=== PATIENT | female | born 1990 | race Caucasian/White ===

== ENCOUNTER 2017-10-06 13:44 | Inpatient (IN) | payer OTHER ==
[~2017-10-06] VITALS: Ht 152.4 cm; Wt 70.9 kg
[~2017-10-06 13:44] MED LIST: PREN1TAB62 PO
[2017-10-06] MEDS ORDERED: ONDANSETRON 4 MG INJ IV STA (14:04)
[2017-10-06] MEDS ORDERED: HYDROmorphONE 1 MG/ML SYG IV STA ×2 (14:04→16:55)
[2017-10-06] MEDS ORDERED: SOD CHLORIDE 0.9% 1,000 ML IV STA (14:04)
[2017-10-06 14:31] LABS: BASOPHIL # 0.1 10^3/ul (0.0-0.1); BASOPHILS % 0.5 % (0.0-2.0); EOSINOPHILS # 0.1 10^3/ul (0.0-0.5); EOSINOPHILS % 1.4 % (0.0-7.0); HEMATOCRIT 37.7 % (37.0-47.0); HEMOGLOBIN 12.3 g/dl (12.0-16.0); LYMPHOCYTES # 2.2 10^3/ul (0.8-2.9); LYMPHOCYTES % 21.1 % (15.0-51.0); MEAN CORPUSCULAR HEMOGLOBIN 29.1 pg (29.0-33.0); MEAN CORPUSCULAR HGB CONC 32.6 g/dl (32.0-37.0); MEAN CORPUSCULAR VOLUME 89.3 fl (82.0-101.0); MEAN PLATELET VOLUME 9.8 fl (7.4-10.4); MONOCYTE # 0.5 10^3/ul (0.3-0.9); MONOCYTES % 5.2 % (0.0-11.0); NEUTROPHIL # 7.3 10^3/ul (1.6-7.5); NEUTROPHILS % 71.4 % (39.0-77.0); PLATELET COUNT 325 10^3/UL (140-415); RED BLOOD COUNT 4.22 10^6/ul (4.20-5.40); RED CELL DISTRIBUTION WIDTH 14.2 % (11.5-14.5); WHITE BLOOD COUNT 10.3 10^3/ul (4.8-10.8)
[2017-10-06 14:49] LABS: ALBUMIN 4.3 g/dl (3.3-4.9); ALBUMIN/GLOBULIN RATIO 1.16; BILIRUBIN,INDIRECT 0.2 mg/dl (0-1.1); BILIRUBIN,TOTAL 0.2 mg/dl (0.2-1.3); CALCIUM 9.5 mg/dl (8.4-10.2); CREATININE 0.64 mg/dl (0.44-1.00); POTASSIUM 3.9 mmol/L (3.5-5.1)
--- NOTE | 2017-10-06 15:23 | RADRPT ---
PROCEDURE: Renal US. CLINICAL INDICATION: Left nephrostomy tube. Possible hydronephrosis. TECHNIQUE: Multiple sonographic images of the kidneys were obtained. COMPARISON: No prior studies are available for comparison. FINDINGS: The kidneys are well visualized. The right kidney measures 10.0 cm. The left kidney measures 11.8 cm . Normal renal cortical echogenicity. No evidence of shadowing renal calculi. Trace left hydronephro sis with nephrostomy tube visualized. No right hydronephrosis. Normal appearance of the urinary mercedez dder. IMPRESSION: Left nephrostomy tube with trace left hydronephrosis. RPTAT:AAJJ Physician Manny Date Time Electronically viewed and signed by Physician Manny on 10/06/2017 15:23 /
[2017-10-06 15:46] LABS: ADD UMIC YES; UR ASCORBIC ACID NEGATIVE (NEGATIVE); UR BACTERIA FEW /HPF (NONE SEEN); UR BILIRUBIN (Dip) NEGATIVE (NEGATIVE); UR BLOOD (Dip) 1+ mg/dL (NEGATIVE); UR CLARITY CLEAR (CLEAR); UR COLOR STRAW (YELLOW); UR GLUCOSE (Dip) NEGATIVE (NEGATIVE); UR KETONES (Dip) NEGATIVE (NEGATIVE); UR LEUKOCYTE ESTERASE (Dip) 2+ Leu/ul (NEGATIVE); UR NITRITE (Dip) POSITIVE (NEGATIVE); UR RBC 3 /HPF (0-5); UR TOTAL PROTEIN (Dip) NEGATIVE (NEGATIVE); UR UROBILINOGEN (Dip) NEGATIVE (NEGATIVE)
[2017-10-06] MEDS ORDERED: VANCOMYCIN 1 GM (PMX) 250 ML IVPB SCH (16:30)
[2017-10-06] MEDS ORDERED: CEFTRIAXONE 1 GM/50 ML (PMX) 50 ML IVPB ONE (16:30)
[2017-10-06 16:57] VITALS: TEMP 98.2
--- NOTE | 2017-10-06 17:58 | ERD ---
ER Documentation Chief Complaint Chief Complaint Sent by Dr ortiz for eval left kidney drain tube with flank pain HPI 26-year-old female referred to the emergency department by her urologist for evaluation of an infected urostomy tube. Patient has a known history of kidney stones and has had a urostomy in place for some time now. Patient is seen Dr. Davidson who has recommended admission to the hospital for infected stone. She reports colicky flank pain that she has had now on and off for some weeks. Despite multiple courses of antibiotics, she continues to have discomfort and intermittent fevers. Patient reports no hematuria and continues to have normal drainage from the nephrostomy tube. She reports nausea but no vomiting. She currently reports her pain is 10 out of 10 and localized to the area over the nephrostomy tube. ROS All systems reviewed and are negative except as per history of present illness. Medications Home Meds Discontinued Reported Medications Vit-Iron Fumarate-FA ( Vitamin Tablet) 1 Each Tablet, 1 TAB PO DAILY, TAB 06/05/16 Allergies Allergies: Coded Allergies: promethazine (Verified Allergy, Severe, 10/06/17) STOPS BREATHING PMhx/Soc History of Surgery: Yes (, ETOPIC PREG, I&D, NEPHROSTOMY TUBE) Anesthesia Reaction: No Hx Neurological Disorder: No Hx Respiratory Disorders: No Hx Cardiac Disorders: No Hx Psychiatric Problems: No Hx Miscellaneous Medical Probl: Yes (1.7MM KIDNEY STONE) Hx Alcohol Use: No Hx Substance Use: No Hx Tobacco Use: No Smoking Status: Never smoker FmHx Noncontributory for chief complaint Physical Exam Vitals Vital Signs Date Time Temp Pulse Resp B/P Pulse Ox O2 Delivery O2 Flow Rate FiO2 10/06/17 16:57 98.2 67 20 108/59 100 Room Air 10/06/17 14:30 98.2 55 20 111/67 100 Room Air 10/06/17 13:49 98.2 64 20 123/66 99 Physical Exam GENERAL: The patient is well developed and appropriate for usual state of health in no apparent distress, patient appears uncomfortable HEENT: Pupils equal, round, and reactive to light. EOMI. There is no scleral icterus. NECK: C-spine is soft and supple, there is no meningismus. There is no cervical lymphadenopathy. LUNGS: Clear to auscultation bilaterally. There are no rales, wheezes or rhonchi. HEART: Regular rate and rhythm, no murmurs, clicks, rubs or gallops. ABDOMEN: Soft, non-tender, non-distended. There are bowel sounds in all four quadrants. No rebound or guarding. There is a nephrostomy tube in the left flank. Patient has crusting around the insertion site with no cellulitis. EXTREMITIES: There is no peripheral cyanosis or edema. No focal swelling or erythema. NEURO: The patient moves all four extremities with 5/5 strength. Cranial nerves II - XII are intact. Normal gait. Alert and oriented SKIN: There is no apparent rash or petechiae. HEME/LYMPHATIC: There is no evidence of excessive bruising or lymphedema. PSYCHIATRIC: The patient does not appear anxious or depressed. Result Diagram: 10/06/17 1418 10/06/17 1418 Results 24 hrs Laboratory Tests Test 10/06/17 14:18 10/06/17 14:26 10/06/17 15:10 White Blood Count 10.310^3/ul Red Blood Count 4.2210^6/ul Hemoglobin 12.3g/dl Hematocrit 37.7% Mean Corpuscular Volume 89.3fl Mean Corpuscular Hemoglobin 29.1pg Mean Corpuscular Hemoglobin Concent 32.6g/dl Red Cell Distribution Width 14.2% Platelet Count 52393^3/UL Mean Platelet Volume 9.8fl Neutrophils % 71.4% Lymphocytes % 21.1% Monocytes % 5.2% Eosinophils % 1.4% Basophils % 0.5% Nucleated Red Blood Cells % 0.0/100WBC Neutrophils # 7.310^3/ul Lymphocytes # 2.210^3/ul Monocytes # 0.510^3/ul Eosinophils # 0.110^3/ul Basophils # 0.110^3/ul Nucleated Red Blood Cells # 0.010^3/ul Sodium Level 141mmol/L Potassium Level 3.9mmol/L Chloride Level 107mmol/L Carbon Dioxide Level 24mmol/L Anion Gap 14 Blood Urea Nitrogen 13mg/dl Creatinine 0.64mg/dl Glucose Level 90mg/dl Calcium Level 9.5mg/dl Total Bilirubin 0.2mg/dl Direct Bilirubin 0.00mg/dl Indirect Bilirubin 0.2mg/dl Aspartate Amino Transf (AST/SGOT) 23IU/L Alanine Aminotransferase (ALT/SGPT) 32IU/L Alkaline Phosphatase 75IU/L Total Protein 8.0g/dl Albumin 4.3g/dl Globulin 3.70g/dl Albumin/Globulin Ratio 1.16 Lipase 82U/L Lactic Acid Level 1.4mmol/L Urine Color STRAW Urine Clarity CLEAR Urine pH 6.0 Urine Specific [place] 1.010 Urine Ketones NEGATIVEmg/dL Urine Nitrite POSITIVEmg/dL Urine Bilirubin NEGATIVEmg/dL Urine Urobilinogen NEGATIVEmg/dL Urine Leukocyte Esterase 2+Shonna/ul Urine Microscopic RBC 3/HPF Urine Microscopic WBC 31/HPF Urine Bacteria FEW/HPF Urine Hemoglobin 1+mg/dL Urine Glucose NEGATIVEmg/dL Urine Total Protein NEGATIVEmg/dl Current Medications Medications (Trade) Dose Ordered Sig/Danna Route PRN Reason Start Time Stop Time Status Last Admin Dose Admin Sodium Chloride (NS) 1,000 ml @ 1,000 mls/hr Q1H STAT IV 10/06/17 14:04 10/06/17 15:03 DC 10/06/17 14:28 Hydromorphone HCl (Dilaudid) 1 mg ONCE STAT IV 10/06/17 14:04 10/06/17 14:06 DC 10/06/17 14:28 Ondansetron HCl 4 mg 4 mg ONCE STAT IV 10/06/17 14:04 10/06/17 14:06 DC 10/06/17 14:28 Ceftriaxone Sodium 50 ml @ 100 mls/hr ONCE ONCE IVPB 10/06/17 16:30 10/06/17 16:59 DC 10/06/17 16:57 Vancomycin HCl (Vancocin) 250 ml @ 125 mls/hr ONCE IVPB 10/06/17 16:30 10/06/17 18:29 Hydromorphone HCl (Dilaudid) 1 mg ONCE STAT IV 10/06/17 16:55 10/06/17 16:56 DC 10/06/17 17:09 Procedures/MDM Patient was taken to a room, seen and evaluated. Comfort measures were initiated. Diagnostic tests were ordered and reviewed. 3 LEAD RHYTHM STRIP: Normal sinus rhythm without ectopy RADIOLOGY: reviewed with the radiologist CONSULTATION: hospitalist was notified for admission, Dr. Davidson was consulted REEVALUATION: Patient remained uncomfortable with need for ongoing pain medication. MEDICAL DECISION MAKIN-year-old female presents the emergency department with evidence of an infected nephrostomy tube. At this time, patient will require IV antibiotics, admission to the hospital for urologic consultation and consideration of removal of the tube. Patient has no evidence of ongoing hydronephrosis at this time. Does not appear to be septic. Departure Diagnosis: Primary Impression: Skin inflammation at urostomy site Additional Impression: UTI (urinary tract infection) Condition: PARDEEP Matthew Oct 06, 2017 17:58
[2017-10-06 19:29] VITALS: Ht 152.4 cm; Wt 70.9 kg
[2017-10-06] MEDS ORDERED: HYDROmorphONE 1 MG/ML SYG IV ONE (21:00)
[2017-10-06 21:07] VITALS: BP 109/70; RESP 18
[2017-10-06] MEDS ORDERED: ONDANSETRON 4 MG INJ IV PRN (22:00)
[2017-10-06] MEDS ORDERED: NACL 0.9% 3 ML SYG IV SCH (22:00)
[2017-10-06] MEDS ORDERED: ACETAMINOPHEN 325 MG TAB PO PRN (22:00)
[2017-10-06] MEDS ORDERED: BISACODYL (EC) 5 MG TAB PO PRN (22:00)
[2017-10-06] MEDS ORDERED: DOCUSATE SODIUM 100 MG CAP PO PRN (22:00)
--- NOTE | 2017-10-06 23:31 | HP ---
Date/Time of Note Date/Time of Note DATE: 10/06/17 TIME: 23:31 Assessment/Plan VTE Prophylaxis VTE Prophylaxis Intervention: SCD's Lines/Catheters Urinary Cath still in place: No Assessment/Plan Chief Complaint/Hosp Course This is a 26-year-old female being admitted to the [facility] floor for: #1 urinary tract infection: Patient has a normal white blood cell count and is afebrile currently. Her UA is positive for nitrites and leuk esterase. She was given vancomycin and ceftriaxone in the ED. At the current time we will continue ceftriaxone. Will await urine culture. Will provide fluid hydration with normal saline #2 Nephrolithiasis: Patient apparently has a history of 1.2 cm kidney stone of the left kidney. On renal ultrasound there does not appear to be any renal stone visible, there does appear to be some mild hydronephrosis. At the current time will provide pain control with Dilaudid. Dr. Davidson of urology has been consulted will defer additional imaging to urology. #3 DVT and GI prophylaxis: SCDs, no GI prophylaxis indicated Further treatment strategy will be implemented as per the clinical course Problems: HPI/ROS Admit Date/Time Admit Date/Time Oct 06, 2017 at 17:54 Hx of Present Illness Chief complaint: Infected nephrostomy tube This is a 26-year-old female with a history of approximately 1.2 cm kidney stone was reported by the patient who presents to the emergency department at the direction of her urologist as she has been having significant pain from her left nephrostomy tube. Patient states that she has been diagnosed with a kidney stone for some time now and this is her third nephrostomy tube at this point. She was given an antibiotic to be taken as an outpatient however she was not able to take it as her pain was so bad that she had to come to the hospital. She reports colicky flank pain that has been going on and off for weeks now. She has been on multiple courses of antibiotics. She does report experiencing fevers as well. She denies any blood in the nephrostomy tube. Denies any vomiting but does state she has nausea. She also reports that she has itching on the site of the nephrostomy tube with the tape is as well as a rash. Allergies: Promethazine Medications: See MATTI JAMES Const: As per HPI Eyes : No pain discharge or redness or change in visual acuity ENT: No pain, sore throat, congestion, congestion, dysphagia or discharge Respiratory: No shortness of breath, cough, sputum, wheezing, or pleuritic pain Cardiovascular: No chest pain, palpitation, PND, or edema GI : no change in appetite, abdominal pain, nausea, vomiting, diarrhea, constipation, or change in the color his stool Genitourinary: As per HPI Musculoskeletal: No joint pain, back pain, neck pain, restricted range of motion in neck or joints Skin: No rash, bruising or hives Neuro: No headache, dizziness, syncope, seizure, focal weakness Endocrine: No polyuria, polydipsia, temperature intolerance Psych: No hallucination, depression, anxiety or suicidal ideation PMH/Family/Social Past Medical History Nephrolithiasis with approximately 1.2 cm kidney stone of the left kidney Past Surgical History 3 ectopic surgery, nephrostomy tube 3, Family History Significant Family History: other (Lupus, rheumatoid arthritis) Social History Alcohol Use: none Smoking Status: Current every day smoker (4 cigarettes a day 11 years) Drug Use: none Exam/Review of Systems Vital Signs Vitals Vital Signs Date Time Temp Pulse Resp B/P Pulse Ox O2 Delivery O2 Flow Rate FiO2 10/06/17 21:07 97.8 54 18 109/70 98 10/06/17 16:57 Room Air Exam Exam General: Patient was lying in bed initially when I saw her she was sleeping comfortably. She was easily arousable. HEENT: Atraumatic, normocephalic. The pupils are equal, round and reactive. Extraocular motor are intact Neck: Supple with full range of motion. No rigidity or meningismus Chest: Nontender Lungs: Clear to auscultation bilaterally no crackles rales or wheezing Heart: Normal S1-S2, Regular rhythm and rate. No murmur, S3, or S4 Abdomen: Soft , nontender, nondistended , bowel sounds are present. No guarding no rebound tenderness , No masses or organomegaly. No costovertebral temporal angle mass Extremities: Normal to inspection, no edema no cyanosis Neurologic: Normal mental status, speech normal, cranial nerves II through XII are intact, motor and sensory are intact, no focal weakness Genitourinary: Left-sided flank pain to palpation, nephrostomy tube in place, the tape around the nephrostomy tube is not adequately placed and she does have an underlying rash around the area of the tape. Urine appears cloudy Additional Comments PROCEDURE: Renal US. CLINICAL INDICATION: Left nephrostomy tube. Possible hydronephrosis. TECHNIQUE: Multiple sonographic images of the kidneys were obtained. COMPARISON: No prior studies are available for comparison. FINDINGS: The kidneys are well visualized. The right kidney measures 10.0 cm. The left kidney measures 11.8 cm. Normal renal cortical echogenicity. No evidence of shadowing renal calculi. Trace left hydronephrosis with nephrostomy tube visualized. No right hydronephrosis. Normal appearance of the urinary bladder. IMPRESSION: Left nephrostomy tube with trace left hydronephrosis. RPTAT:AAJJ Physician Manny Date Time Electronically viewed and signed by Ailin Damico Physician on 10/06/2017 15 :23 MH/ CC: PARDEEP HAWK Labs Result Diagram: 10/06/17 1418 10/06/17 1418 Medications Medications Current Medications Sodium Chloride (NS) 1,000 ml @ 80 mls/hr [id number] IV ; Start 10/07/17 at 00:00 Ondansetron HCl (Zofran Inj) 4 mg Q6H PRN IV NAUSEA AND/OR VOMITING; Start at 22:00 Acetaminophen (Tylenol Tab) 650 mg Q6H PRN PO PAIN LEVEL 1-3 OR FEVER; Start 10/06/17 at 22:00 Hydromorphone HCl (Dilaudid) 0.5 mg Q4H PRN IV SEVERE PAIN LEVEL 7-10; Start 10/06/17 at 22:00 Docusate Sodium (Colace) 100 mg Q12H PRN PO CONSTIPATION; Start 10/06/17 at 22 :00 Bisacodyl 5 mg 5 mg DAILY PRN PO CONSTIPATION; Start 10/06/17 at 22:00 Ceftriaxone Sodium (Rocephin) 50 ml @ 100 mls/hr Q24H IVPB ; Start 11/19/17 at 16:30 SOSA SCHROEDER Oct 06, 2017 23:31
[2017-10-06] MEDS: SOD CHLORIDE 0.9% 1,000 ML IV SCH (23:57)
[2017-10-07] MEDS: HYDROmorphONE 0.5 MG/0.5 ML SYG IV PRN ×6 (01:15→22:31)
[2017-10-07 03:06] VITALS: BP 127/84; RESP 18
[2017-10-07 06:08] LABS: BASOPHILS % 0.4 % (0.0-2.0); EOSINOPHILS # 0.1 10^3/ul (0.0-0.5); EOSINOPHILS % 1.8 % (0.0-7.0); HEMATOCRIT 32.9 % (37.0-47.0); HEMOGLOBIN 10.9 g/dl (12.0-16.0); LYMPHOCYTES # 2.2 10^3/ul (0.8-2.9); LYMPHOCYTES % 31.2 % (15.0-51.0); MEAN CORPUSCULAR HEMOGLOBIN 29.2 pg (29.0-33.0); MEAN CORPUSCULAR HGB CONC 33.1 g/dl (32.0-37.0); MEAN CORPUSCULAR VOLUME 88.2 fl (82.0-101.0); MEAN PLATELET VOLUME 9.8 fl (7.4-10.4); MONOCYTE # 0.5 10^3/ul (0.3-0.9); MONOCYTES % 6.3 % (0.0-11.0); NEUTROPHIL # 4.3 10^3/ul (1.6-7.5); PLATELET COUNT 277 10^3/UL (140-415); RED BLOOD COUNT 3.73 10^6/ul (4.20-5.40); RED CELL DISTRIBUTION WIDTH 14.1 % (11.5-14.5); WHITE BLOOD COUNT 7.2 10^3/ul (4.8-10.8)
[2017-10-07 06:38] LABS: ALBUMIN 3.5 g/dl (3.3-4.9); ALBUMIN/GLOBULIN RATIO 1.16; BILIRUBIN,INDIRECT 0.3 mg/dl (0-1.1); BILIRUBIN,TOTAL 0.3 mg/dl (0.2-1.3); CALCIUM 8.5 mg/dl (8.4-10.2); CHOL/HDL RATIO 3.9 RATIO; CREATININE 0.7 mg/dl (0.44-1.00); MAGNESIUM 1.8 mg/dl (1.7-2.5); TOTAL PROTEIN 6.5 g/dl (6.1-8.1)
[2017-10-07 07:52] LABS: THYROID STIMULATING HORMONE 1.4 MIU/L (0.465-4.680)
[2017-10-07 08:00] VITALS: BP 105/55; RESP 18
[2017-10-07] MEDS: HYDROCORTISONE 1% 28 GM CR TOP SCH ×2 (09:38→20:29)
[2017-10-07 09:48] LABS: INR 1.1; PROTIME 14.2 Sec (12.2-14.2); PT RATIO 1.1
[2017-10-07 09:49] LABS: PARTIAL THROMBOPLASTIN TIME 32.1 Sec (25.0-35.0)
--- NOTE | 2017-10-07 11:00 | RADRPT ---
PROCEDURE: XR ABDOMEN. CLINICAL INDICATION: Kidney stone TECHNIQUE: 2 views of the abdomen were obtained. COMPARISON: None. FINDINGS: There is nonspecific bowel gas pattern. No evidence of obstruction. No evidence of air-fluid levels. Stool and air is noted throughout large bowel. No evidence of subdiaphragmatic free air. There is a left-sided percutaneous nephrostomy tube. There is a large 1.6 cm calcification, adjacent to the ne phrostomy tube The visualized osseous structures are unremarkable. IMPRESSION: 1. Left-sided percutaneous nephrostomy tube. There is a large 1.6 cm calcification adjacent to the n ephrostomy tube overlying the left kidney, probably a large renal stone. RPTAT: EE Physician Gio Date Time Electronically viewed and signed by Physician Gio on 10/07/2017 10:59 JL/
[2017-10-07] MEDS: SOD CHLORIDE 0.9% 1,000 ML IV SCH (12:16)
[2017-10-07] MEDS: HYDROCODONE/APAP (5/325) TAB PO PRN ×3 (12:16→23:47)
[2017-10-07 14:00] VITALS: BP 97/57; RESP 18
--- NOTE | 2017-10-07 15:15 | CONS ---
Date/Time of Note Date/Time of Note DATE: 10/07/17 TIME: 15:02 Assessment/Plan Assessment/Plan Chief Complaint/Hosp Course 26-year-old female has a 16 mm stone in the left renal pelvis. She has a left nephrostomy tube which was initially inserted in June and changed twice since. Patient also was septic and was admitted to [facility] on August. The patient is now covered was antibiotic urine culture was taken from the left nephrostomy tube. The result is pending. In the meantime we shall cover her with antibiotic and may be in 2 days we will do the extracorporeal shockwave lithotripsy put the JJ stent and remove the nephrostomy tube. I did discuss this plan with her and the fact that she may need multiple procedures because of the size of the stone and the importance of following up as we cannot keep the JJ stent in place so it will not get calcified Problems: Consultation Date/Type/Reason Admit Date/Time Oct 06, 2017 at 17:54 Date of Consultation: Oct 07, 2017 Type of Consultation: Urology Reason for Consultation Left kidney stone and infected left nephrostomy tube Referring Provider: ERICK WRIGHT MD Hx of Present Illness This is a 26-year-old female who has been having problems with left renal stone since June 2017. At that time she was in [place] and she had a nephrostomy tube placed then again in August she had the nephrostomy tube replaced and also in July she was recently admitted to [facility] because of sepsis was treated with antibiotic and sent home. I did see the patient in the office on September 28 and requested authorization for shockwave lithotripsy and insertion of a JJ stent and removal of the nephrostomy tube. However the patient presented to the emergency room at [facility] because of pain and the infection. She was therefore admitted and started on antibiotics after collecting urine for culture from the nephrostomy Constitutional: no complaints Eyes: no complaints ENT: no complaints Respiratory: no complaints Cardiovascular: no complaints, No chest pain Gastrointestinal: no complaints, No nausea, No vomiting Genitourinary: flank pain (Left flank) Musculoskeletal: no complaints Skin: no complaints Endocrine: no complaints Lymphatic: no complaints Psychological: no complaints Immunologic: no complaints Past Medical History Medical History: other (Left renal stone, left nephrostomy tube, sepsis from the infection in the kidney) Past Surgical History Past Surgical Hx: other (Left nephrostomy tube inserted and replaced twice, 3 C -sections.) Family History Significant Family History: no pertinent family hx Social History Alcohol Use: none Smoking Status: Current every day smoker (4 cigarettes a day 11 years) Drug Use: none Other Social History She is a 5 para 3 1 ectopic one and 3 C-sections Exam/Review of Systems Vital Signs Vitals Vital Signs Date Time Temp Pulse Resp B/P Pulse Ox O2 Delivery O2 Flow Rate FiO2 10/07/17 08:00 98.5 62 18 105/55 99 10/06/17 16:57 Room Air Intake and Output 10/06/17 10/06/17 10/07/17 14:59 22:59 06:59 Intake Total 50 ml 900 ml Balance 50 ml 900 ml Exam Constitutional: alert, oriented Psych: no complaints Head: normocephalic Eyes: nl conjunctiva ENMT: nl external ears & nose Neck: supple Respiratory: normal air movement Cardiovascular: regular rate and rhythm Gastrointestinal: soft, No tender Genitourinary - Female: CVA tenderness (Left side, and left nephrostomy tube) Musculoskeletal: nl extremities to inspection Extremities: No calf tenderness Neurological: nl mental status Results Result Diagram: 10/07/1752010/07/17520 Results 24 hrs Laboratory Tests Test 10/06/17 15:10 10/07/17 05:21 10/07/17 08:38 Urine Color STRAW Urine Clarity CLEAR Urine pH 6.0 Urine Specific [place] 1.010 Urine Ketones NEGATIVE Urine Nitrite POSITIVE A Urine Bilirubin NEGATIVE Urine Urobilinogen NEGATIVE Urine Leukocyte Esterase 2+ H Urine Microscopic RBC 3 Urine Microscopic WBC 31 H Urine Bacteria FEW A Urine Hemoglobin 1+ H Urine Glucose NEGATIVE Urine Total Protein NEGATIVE White Blood Count 7.2 # Red Blood Count 3.73 L Hemoglobin 10.9 L Hematocrit 32.9 L Mean Corpuscular Volume 88.2 Mean Corpuscular Hemoglobin 29.2 Mean Corpuscular Hemoglobin Concent 33.1 Red Cell Distribution Width 14.1 Platelet Count 277 Mean Platelet Volume 9.8 Neutrophils % 60.0 Lymphocytes % 31.2 Monocytes % 6.3 Eosinophils % 1.8 Basophils % 0.4 Nucleated Red Blood Cells % 0.0 Neutrophils # 4.3 Lymphocytes # 2.2 Monocytes # 0.5 Eosinophils # 0.1 Basophils # 0.0 Nucleated Red Blood Cells # 0.0 Sodium Level 142 Potassium Level 4.0 Chloride Level 107 Carbon Dioxide Level 24 Anion Gap 15 Blood Urea Nitrogen 9 Creatinine 0.70 Glucose Level 85 Hemoglobin A1c 5.1 Calcium Level 8.5 Magnesium Level 1.8 Total Bilirubin 0.3 Direct Bilirubin 0.00 Indirect Bilirubin 0.3 Aspartate Amino Transf (AST/SGOT) 17 Alanine Aminotransferase (ALT/SGPT) 28 Alkaline Phosphatase 69 Total Protein 6.5 # Albumin 3.5 Globulin 3.00 Albumin/Globulin Ratio 1.16 Triglycerides Level 86 Cholesterol Level 135 LDL Cholesterol, Calculated 84 HDL Cholesterol 34 Cholesterol/HDL Ratio 3.9 Thyroid Stimulating Hormone (TSH) 1.400 Prothrombin Time 14.2 Prothrombin Time Ratio 1.1 INR International Normalized Ratio 1.10 Activated Partial Thromboplast Time 32.1 Imaging Free Text/Dictation KUB: 1. Left-sided percutaneous nephrostomy tube. There is a large 1.6 cm x1.8cm calcification adjacent to the nephrostomy tube overlying the left kidney, probably a large renal stone. Medications Medications Current Medications Sodium Chloride (NS) 1,000 ml @ 80 mls/hr [id number] IV Last administered on 12:16; Admin Dose 80 MLS/HR; Start 10/07/17 at 00:00 Ondansetron HCl (Zofran Inj) 4 mg Q6H PRN IV NAUSEA AND/OR VOMITING Last administered on 10/07/17 01:18; Admin Dose 4 MG; Start 10/06/17 at 22:00 Acetaminophen (Tylenol Tab) 650 mg Q6H PRN PO PAIN LEVEL 1-3 OR FEVER; Start 10/06/17 at 22:00 Hydromorphone HCl (Dilaudid) 0.5 mg Q4H PRN IV SEVERE PAIN LEVEL 7-10 Last administered on 10/07/17 14:10; Admin Dose 0.5 MG; Start 10/06/17 at 22:00 Docusate Sodium (Colace) 100 mg Q12H PRN PO CONSTIPATION; Start 10/06/17 at 22 :00 Bisacodyl 5 mg 5 mg DAILY PRN PO CONSTIPATION; Start 10/06/17 at 22:00 Ceftriaxone Sodium (Rocephin) 50 ml @ 100 mls/hr Q24H IVPB ; Start 10/07/17 at 16:30 Hydrocortisone (Hydrocortisone 1% Cr) 1 applic BID TOP Last administered on 09:38; Admin Dose 1 APPLIC; Start 10/07/17 at 09:00 Acetaminophen/ Hydrocodone Bitart ([place] (5/325)) 1 tab Q4H PRN PO PAIN LEVEL 1 -5 Last administered on 10/07/17 12:16; Admin Dose 1 TAB; Start 10/07/17 at 12:00 RODRÍGUEZ ERNANDEZ MD Oct 07, 2017 15:15
--- NOTE | 2017-10-07 16:56 | PN ---
Date/Time of Note Date/Time of Note DATE: 10/07/17 TIME: 16:55 Assessment/Plan VTE Prophylaxis VTE Prophylaxis Intervention: ambulation Lines/Catheters IV C[facility]ter Type (from [facility]): Peripheral IV Urinary Cath still in place: No Assessment/Plan Chief Complaint/Hosp Course 1. Urinary tract infection. Continue antimicrobials. Await final cultures. No evidence of any septic shock. 2. Left-sided kidney stone with associated urinary tract infection. The patient being followed by urology. Plan for lithotripsy. The patient has a left nephrostomy in place. 3. Obesity. BMI of 30.5 kg/m. Weight reduction advised. Hemoglobin A1c and fasting lipid panel satisfactory. 4. Nicotine use. Cessation advised. 5. Fluids, electrolytes, and nutrition. Regular diet. Continue IV hydration. 6. DVT prophylaxis. Ambulation. 7. Plan. Continue analgesics. Continue IV hydration. Continue empiric antibiotics. Await intervention by urology. Case discussed with Dr. Perry. Problems: Subjective 24 Hr Interval Summary Free Text/Dictation Left flank pain well controlled. Denies any nausea. Remains afebrile. Exam/Review of Systems Vital Signs Vitals Vital Signs Date Time Temp Pulse Resp B/P Pulse Ox O2 Delivery O2 Flow Rate FiO2 10/07/17 08:00 98.5 62 18 105/55 99 10/06/17 16:57 Room Air Intake and Output 10/06/17 10/06/17 10/07/17 14:59 22:59 06:59 Intake Total 50 ml 900 ml Balance 50 ml 900 ml Exam General: Adequately build 26 year-old female lying in bed in no apparent distress. HEENT: Normocephalic, atraumatic. Eyes: Anicteric sclerae, conjunctivae clear. ENT: Nasal septum midline, oral mucosa moist. Neck supple, no JVD noticed. Respiratory: Bilaterally clear breath sounds. No use of accessory muscles of respiration. No adventitious breath sounds. Cardiovascular: S1, S2 heard. No murmurs or gallops. Abdomen: Soft and nondistended. Left upper quadrant tenderness. Bowel sounds positive in all 4 quadrants. Genitourinary: Left CVA tenderness. Left-sided nephrostomy in place. Extremities: No cyanosis, no clubbing, no edema. Peripheral pulses palpable. Neurologic: Cranial nerves II through XII grossly intact. The patient is awake, alert, and oriented. Skin: Normal skin turgor. No skin rashes. Results Result Diagram: 10/07/17 0510/07/17 05 Results 24 hrs Laboratory Tests Test 10/07/17 05:21 10/07/17 08:38 White Blood Count 7.2 # Red Blood Count 3.73 L Hemoglobin 10.9 L Hematocrit 32.9 L Mean Corpuscular Volume 88.2 Mean Corpuscular Hemoglobin 29.2 Mean Corpuscular Hemoglobin Concent 33.1 Red Cell Distribution Width 14.1 Platelet Count 277 Mean Platelet Volume 9.8 Neutrophils % 60.0 Lymphocytes % 31.2 Monocytes % 6.3 Eosinophils % 1.8 Basophils % 0.4 Nucleated Red Blood Cells % 0.0 Neutrophils # 4.3 Lymphocytes # 2.2 Monocytes # 0.5 Eosinophils # 0.1 Basophils # 0.0 Nucleated Red Blood Cells # 0.0 Sodium Level 142 Potassium Level 4.0 Chloride Level 107 Carbon Dioxide Level 24 Anion Gap 15 Blood Urea Nitrogen 9 Creatinine 0.70 Glucose Level 85 Hemoglobin A1c 5.1 Calcium Level 8.5 Magnesium Level 1.8 Total Bilirubin 0.3 Direct Bilirubin 0.00 Indirect Bilirubin 0.3 Aspartate Amino Transf (AST/SGOT) 17 Alanine Aminotransferase (ALT/SGPT) 28 Alkaline Phosphatase 69 Total Protein 6.5 # Albumin 3.5 Globulin 3.00 Albumin/Globulin Ratio 1.16 Triglycerides Level 86 Cholesterol Level 135 LDL Cholesterol, Calculated 84 HDL Cholesterol 34 Cholesterol/HDL Ratio 3.9 Thyroid Stimulating Hormone (TSH) 1.400 Prothrombin Time 14.2 Prothrombin Time Ratio 1.1 INR International Normalized Ratio 1.10 Activated Partial Thromboplast Time 32.1 Medications Medications Current Medications Sodium Chloride (NS) 1,000 ml @ 80 mls/hr [id number] IV Last administered on 12:16; Admin Dose 80 MLS/HR; Start 10/07/17 at 00:00 Ondansetron HCl (Zofran Inj) 4 mg Q6H PRN IV NAUSEA AND/OR VOMITING Last administered on 10/07/17 01:18; Admin Dose 4 MG; Start 10/06/17 at 22:00 Acetaminophen (Tylenol Tab) 650 mg Q6H PRN PO PAIN LEVEL 1-3 OR FEVER; Start 10/06/17 at 22:00 Hydromorphone HCl (Dilaudid) 0.5 mg Q4H PRN IV SEVERE PAIN LEVEL 7-10 Last administered on 10/07/17 14:10; Admin Dose 0.5 MG; Start 10/06/17 at 22:00 Docusate Sodium (Colace) 100 mg Q12H PRN PO CONSTIPATION; Start 10/06/17 at 22 :00 Bisacodyl 5 mg 5 mg DAILY PRN PO CONSTIPATION; Start 10/06/17 at 22:00 Ceftriaxone Sodium (Rocephin) 50 ml @ 100 mls/hr Q24H IVPB ; Start 10/07/17 at 16:30 Hydrocortisone (Hydrocortisone 1% Cr) 1 applic BID TOP Last administered on 09:38; Admin Dose 1 APPLIC; Start 10/07/17 at 09:00 Acetaminophen/ Hydrocodone Bitart ([place] (5/325)) 1 tab Q4H PRN PO PAIN LEVEL 1 -5 Last administered on 10/07/17 12:16; Admin Dose 1 TAB; Start 10/07/17 at 12:00 MIKAYLA MASON NP Oct 07, 2017 16:56
[2017-10-07] MEDS: CEFTRIAXONE 1 GM/50 ML (PMX) 50 ML IVPB SCH (17:14)
[2017-10-07 20:34] VITALS: BP 109/59; RESP 18
[2017-10-08 02:42] VITALS: BP 122/58; RESP 18
[2017-10-08] MEDS: HYDROmorphONE 0.5 MG/0.5 ML SYG IV PRN ×5 (02:53→20:15)
[2017-10-08] MEDS: SOD CHLORIDE 0.9% 1,000 ML IV SCH ×2 (05:27→16:06)
[2017-10-08 06:50] LABS: BASOPHILS % 0.5 % (0.0-2.0); EOSINOPHILS # 0.1 10^3/ul (0.0-0.5); EOSINOPHILS % 1.9 % (0.0-7.0); HEMATOCRIT 33.8 % (37.0-47.0); LYMPHOCYTES # 2.3 10^3/ul (0.8-2.9); LYMPHOCYTES % 39.7 % (15.0-51.0); MEAN CORPUSCULAR HGB CONC 32.5 g/dl (32.0-37.0); MEAN CORPUSCULAR VOLUME 89.2 fl (82.0-101.0); MONOCYTE # 0.4 10^3/ul (0.3-0.9); MONOCYTES % 6.8 % (0.0-11.0); NEUTROPHILS % 50.9 % (39.0-77.0); PLATELET COUNT 305 10^3/UL (140-415); RED BLOOD COUNT 3.79 10^6/ul (4.20-5.40); WHITE BLOOD COUNT 5.9 10^3/ul (4.8-10.8)
[2017-10-08 07:15] LABS: MAGNESIUM 1.8 mg/dl (1.7-2.5); PHOSPHORUS 4.6 mg/dl (2.5-4.9)
[2017-10-08 07:48] VITALS: BP 105/55; RESP 18
[2017-10-08] MEDS: HYDROCODONE/APAP (5/325) TAB PO PRN ×4 (07:52→21:25)
[2017-10-08 08:03] LABS: CALCIUM 9.2 mg/dl (8.4-10.2); CREATININE 0.66 mg/dl (0.44-1.00); POTASSIUM 4.1 mmol/L (3.5-5.1)
[2017-10-08] MEDS: HYDROCORTISONE 1% 28 GM CR TOP SCH ×2 (09:09→21:03)
--- NOTE | 2017-10-08 09:25 | PN ---
Date/Time of Note Date/Time of Note DATE: 10/08/17 TIME: 09:22 Assessment/Plan VTE Prophylaxis VTE Prophylaxis Intervention: ambulation Lines/Catheters [facility] Type (from [facility] Peripheral IV Urinary Cath still in place: No Assessment/Plan Chief Complaint/Hosp Course Assessment and plan 1. Urinary tract infection. Continue antibiotics. Afebrile at present. No leukocytosis noted. 2. Left-sided renal stone with associated UTI. Patient being followed by urology. Tentative plan for lithotripsy. Will follow up. 3. Obesity. Weight reduction was advised. 4. Nicotine use. Cessation was advised. Disposition and plan: Continue with IV hydration and analgesics. Continue on antibiotics as well. Tentative plan for lithotripsy. Will follow up. Discussed plan of care with Dr. King Problems: Subjective 24 Hr Interval Summary Free Text/Dictation Reports better pain control at this time. No specific complaints. Appears comfortable at present. Exam/Review of Systems Vital Signs Vitals Vital Signs Date Time Temp Pulse Resp B/P Pulse Ox O2 Delivery O2 Flow Rate FiO2 10/08/17 07:48 98.4 49 18 105/55 98 10/06/17 16:57 Room Air Intake and Output 10/07/17 10/07/17 10/08/17 15:00 23:00 07:00 Intake Total 1650 ml 1550 ml Balance 1650 ml 1550 ml Exam Constitutional: alert, oriented, other (Reports some pain minimally on backside ) Psych: nl mood/affect Head: normocephalic Eyes: nl conjunctiva Neck: non-tender, supple Cardiovascular: other Gastrointestinal: soft (Regular rate) Musculoskeletal: nl extremities to inspection, nl gait and stance Extremities: normal pulses Neurological: HOGSHEAD HAND II-XII intact, nl mental status, nl speech Skin: nl turgor Results Result Diagram: 10/08/17 0530 10/08/17 0530 Results 24 hrs Laboratory Tests Test 10/08/17 05:30 White Blood Count 5.9 Red Blood Count 3.79 L Hemoglobin 11.0 L Hematocrit 33.8 L Mean Corpuscular Volume 89.2 Mean Corpuscular Hemoglobin 29.0 Mean Corpuscular Hemoglobin Concent 32.5 Red Cell Distribution Width 14.0 Platelet Count 305 Mean Platelet Volume 10.0 Neutrophils % 50.9 Lymphocytes % 39.7 Monocytes % 6.8 Eosinophils % 1.9 Basophils % 0.5 Nucleated Red Blood Cells % 0.0 Neutrophils # 3.0 Lymphocytes # 2.3 Monocytes # 0.4 Eosinophils # 0.1 Basophils # 0.0 Nucleated Red Blood Cells # 0.0 Sodium Level 142 Potassium Level 4.1 Chloride Level 107 Carbon Dioxide Level 27 Anion Gap 12 Blood Urea Nitrogen 11 Creatinine 0.66 Glucose Level 88 Calcium Level 9.2 Phosphorus Level 4.6 Magnesium Level 1.8 Medications Medications Current Medications Sodium Chloride (NS) 1,000 ml @ 80 mls/hr [id number] IV Last administered on 05:27; Admin Dose 80 MLS/HR; Start 10/07/17 at 00:00 Ondansetron HCl (Zofran Inj) 4 mg Q6H PRN IV NAUSEA AND/OR VOMITING Last administered on 10/07/17 01:18; Admin Dose 4 MG; Start 10/06/17 at 22:00 Acetaminophen (Tylenol Tab) 650 mg Q6H PRN PO PAIN LEVEL 1-3 OR FEVER; Start 10/06/17 at 22:00 Hydromorphone HCl (Dilaudid) 0.5 mg Q4H PRN IV SEVERE PAIN LEVEL 7-10 Last administered on 10/08/17 06:58; Admin Dose 0.5 MG; Start 10/06/17 at 22:00 Docusate Sodium (Colace) 100 mg Q12H PRN PO CONSTIPATION; Start 10/06/17 at 22 :00 Bisacodyl 5 mg 5 mg DAILY PRN PO CONSTIPATION; Start 10/06/17 at 22:00 Ceftriaxone Sodium (Rocephin) 50 ml @ 100 mls/hr Q24H IVPB Last administered on 10/07/17 17:14; Admin Dose 100 MLS/HR; Start 10/07/17 at 16:30 Hydrocortisone (Hydrocortisone 1% Cr) 1 applic BID TOP Last administered on 09:09; Admin Dose 1 APPLIC; Start 10/07/17 at 09:00 Acetaminophen/ Hydrocodone Bitart ([place] (5/325)) 1 tab Q4H PRN PO PAIN LEVEL 1 -5 Last administered on 10/08/17 07:52; Admin Dose 1 TAB; Start 10/07/17 at 12:00 SLADE KOVACS Oct 08, 2017 09:25
--- NOTE | 2017-10-08 13:59 | RADRPT ---
PROCEDURE: XR Chest. CLINICAL INDICATION: Shortness of breath TECHNIQUE: AP and lateral view of the chest were obtained. COMPARISON: None FINDINGS: Cardiac/vascular structures: Normal cardiomediastinal silhouette. Pulmonary: Lungs are clear. No pleural effusion. No evidence of pneumothorax. Osseous structures: Normal Soft tissues: Normal IMPRESSION: No acute cardiopulmonary disease. RPTAT:AAJJ Physician Manny Date Time Electronically viewed and signed by Ailin Damico Physician on 10/08/2017 13:59 /
[2017-10-08 15:01] VITALS: BP 92/58; RESP 18
[2017-10-08] MEDS: CEFTRIAXONE 1 GM/50 ML (PMX) 50 ML IVPB SCH (16:05)
[2017-10-08 20:00] VITALS: BP 122/68; RESP 18
--- NOTE | 2017-10-08 20:11 | CONS ---
Date/Time of Note Date/Time of Note DATE: 10/08/17 TIME: 20:07 Consult Date/Type/Reason Admit Date/Time Oct 06, 2017 at 17:54 Initial Consult Date 10/07/17 Type of Consultation: Urology Reason for Consultation Left renal stone and urinary tract infection, patient has a left nephrostomy tube Ordering Provider: ERICK WRIGHT MD Subjective Patient states that she has had pain today more than she did yesterday Objective Vital Signs Date Time Temp Pulse Resp B/P Pulse Ox O2 Delivery O2 Flow Rate FiO2 10/08/17 15:01 98.5 50 18 92/58 98 10/06/17 16:57 Room Air Intake and Output 10/07/17 10/07/17 10/08/17 14:59 22:59 06:59 Intake Total 1650 ml 1550 ml Balance 1650 ml 1550 ml Exam The nephrostomy tube is draining well, the culture from the urine from the nephrostomy tube did grow Asmita Results/Medications Result Diagram: 10/08/17 0530 10/08/17 0530 Results 24 hrs Laboratory Tests Test 10/08/17 05:30 10/08/17 12:15 White Blood Count 5.9 Red Blood Count 3.79 L Hemoglobin 11.0 L Hematocrit 33.8 L Mean Corpuscular Volume 89.2 Mean Corpuscular Hemoglobin 29.0 Mean Corpuscular Hemoglobin Concent 32.5 Red Cell Distribution Width 14.0 Platelet Count 305 Mean Platelet Volume 10.0 Neutrophils % 50.9 Lymphocytes % 39.7 Monocytes % 6.8 Eosinophils % 1.9 Basophils % 0.5 Nucleated Red Blood Cells % 0.0 Neutrophils # 3.0 Lymphocytes # 2.3 Monocytes # 0.4 Eosinophils # 0.1 Basophils # 0.0 Nucleated Red Blood Cells # 0.0 Sodium Level 142 Potassium Level 4.1 Chloride Level 107 Carbon Dioxide Level 27 Anion Gap 12 Blood Urea Nitrogen 11 Creatinine 0.66 Glucose Level 88 Calcium Level 9.2 Phosphorus Level 4.6 Magnesium Level 1.8 Urine Test NEGATIVE Medications Current Medications Sodium Chloride (NS) 1,000 ml @ 80 mls/hr [id number] IV Last administered on t 16:06; Admin Dose 80 MLS/HR; Start 10/07/17 at 00:00 Ondansetron HCl (Zofran Inj) 4 mg Q6H PRN IV NAUSEA AND/OR VOMITING Last administered on 10/07/17 01:18; Admin Dose 4 MG; Start 10/06/17 at 22:00 Acetaminophen (Tylenol Tab) 650 mg Q6H PRN PO PAIN LEVEL 1-3 OR FEVER; Start 10/06/17 at 22:00 Hydromorphone HCl (Dilaudid) 0.5 mg Q4H PRN IV SEVERE PAIN LEVEL 7-10 Last administered on 10/08/17 15:42; Admin Dose 0.5 MG; Start 10/06/17 at 22:00 Docusate Sodium (Colace) 100 mg Q12H PRN PO CONSTIPATION; Start 10/06/17 at 22 :00 Bisacodyl 5 mg 5 mg DAILY PRN PO CONSTIPATION; Start 10/06/17 at 22:00 Ceftriaxone Sodium (Rocephin) 50 ml @ 100 mls/hr Q24H IVPB Last administered on 10/08/17 16:05; Admin Dose 100 MLS/HR; Start 10/07/17 at 16:30 Hydrocortisone (Hydrocortisone 1% Cr) 1 applic BID TOP Last administered on 09:09; Admin Dose 1 APPLIC; Start 10/07/17 at 09:00 Acetaminophen/ Hydrocodone Bitart ([place] (5/325)) 1 tab Q4H PRN PO PAIN LEVEL 1 -5 Last administered on 10/08/17 16:41; Admin Dose 1 TAB; Start 10/07/17 at 12:00 Fluconazole (Diflucan) 100 mg DAILY PO ; Start 10/08/17 at 20:00 Assessment/Plan Chief Complaint/Hosp Course 26-year-old female has a 16 mm stone in the left renal pelvis. She has a left nephrostomy tube which was initially inserted in June and changed twice since. Patient also was septic and was admitted to [facility] on August. The patient is now covered was antibiotic urine culture was taken from the left nephrostomy tube. The result showed Asmita. I started her on Diflucan. we will do the extracorporeal shockwave lithotripsy put the JJ stent and remove the nephrostomy tube tomorrow at 5:30 PM. I did discuss this plan with her and the fact that she may need multiple procedures because of the size of the stone and the importance of following up as we cannot keep the JJ stent in place so it will not get calcified. She did understand all of that and is agreeable to proceed and promised to follow up till the whole treatment is completed. Problems: RODRÍGUEZ ERNANDEZ MD Oct 08, 2017 20:11
[2017-10-08] MEDS: FLUCONAZOLE 100 MG TAB PO SCH (20:15)
[2017-10-09] VITALS (21 sets, daily range): BP systolic 104–127; BP diastolic 58–78; PULSE 60–101; RESP 16–18
[2017-10-09] MEDS: HYDROmorphONE 0.5 MG/0.5 ML SYG IV PRN ×4 (01:08→16:30)
[2017-10-09] MEDS: SOD CHLORIDE 0.9% 1,000 ML IV SCH ×3 (02:00→16:30)
[2017-10-09] MEDS ORDERED: HYDROmorphONE 0.5 MG/0.5 ML SYG IV STA (02:20)
[2017-10-09] MEDS: HYDROCODONE/APAP (5/325) TAB PO PRN ×2 (05:32→09:47)
[2017-10-09 06:48] LABS: BASOPHILS % 0.4 % (0.0-2.0); EOSINOPHILS # 0.1 10^3/ul (0.0-0.5); EOSINOPHILS % 1.8 % (0.0-7.0); HEMATOCRIT 33.6 % (37.0-47.0); HEMOGLOBIN 11.1 g/dl (12.0-16.0); LYMPHOCYTES # 2.5 10^3/ul (0.8-2.9); LYMPHOCYTES % 34.1 % (15.0-51.0); MEAN CORPUSCULAR HEMOGLOBIN 29.2 pg (29.0-33.0); MEAN CORPUSCULAR VOLUME 88.4 fl (82.0-101.0); MEAN PLATELET VOLUME 9.9 fl (7.4-10.4); MONOCYTE # 0.5 10^3/ul (0.3-0.9); MONOCYTES % 6.8 % (0.0-11.0); NEUTROPHIL # 4.1 10^3/ul (1.6-7.5); NEUTROPHILS % 56.6 % (39.0-77.0); PLATELET COUNT 308 10^3/UL (140-415); RED CELL DISTRIBUTION WIDTH 13.9 % (11.5-14.5); WHITE BLOOD COUNT 7.2 10^3/ul (4.8-10.8)
[2017-10-09 07:25] LABS: CREATININE 0.85 mg/dl (0.44-1.00); POTASSIUM 4.5 mmol/L (3.5-5.1)
[2017-10-09] MEDS: FLUCONAZOLE 100 MG TAB PO SCH (09:42)
[2017-10-09] MEDS: HYDROCORTISONE 1% 28 GM CR TOP SCH ×2 (09:42→21:00)
--- NOTE | 2017-10-09 10:57 | PN ---
Date/Time of Note Date/Time of Note DATE: 10/09/17 TIME: 10:52 Assessment/Plan VTE Prophylaxis VTE Prophylaxis Intervention: SCD's Lines/Catheters IV [facility] Type [facility] Peripheral IV Urinary Cath still in place: No Assessment/Plan Chief Complaint/Hosp Course Assessment and plan 1. Urinary tract infection. Continue antibiotics. Afebrile at present. No leukocytosis noted. 2. Left-sided renal stone with associated UTI. Patient being followed by urology. plan for cystoscopy 3. Obesity. Weight reduction was advised. 4. Nicotine use. Cessation was advised. Disposition and plan: Continue with IV hydration and analgesics. cont abx. plan for cytstoscopy Discussed plan of care with Dr. King Problems: Subjective 24 Hr Interval Summary Free Text/Dictation reports good pain control at this time. no other specific complaints. Exam/Review of Systems Vital Signs Vitals Vital Signs Date Time Temp Pulse Resp B/P Pulse Ox O2 Delivery O2 Flow Rate FiO2 10/09/17 02:00 98.1 58 18 116/58 99 10/06/17 16:57 Room Air Intake and Output 10/08/17 10/08/17 10/09/17 15:00 23:00 07:00 Intake Total 2070 ml 1310 ml Output Total 1300 ml Balance 770 ml 1310 ml Exam Constitutional: alert, oriented, Psych: nl mood/affect Head: normocephalic Eyes: nl conjunctiva Neck: non-tender, supple Cardiovascular: other Gastrointestinal: soft (Regular rate) Musculoskeletal: nl extremities to inspection, nl gait and stance Extremities: normal pulses Neurological: TELEMEDICINE PHYSICIAN II-XII intact, nl mental status, nl speech Skin: nl turgor Results Result Diagram: 10/09/1760410/09/17604 Results 24 hrs Laboratory Tests Test 10/08/17 12:15 10/09/17 06:05 Urine Test NEGATIVE White Blood Count 7.2 # Red Blood Count 3.80 L Hemoglobin 11.1 L Hematocrit 33.6 L Mean Corpuscular Volume 88.4 Mean Corpuscular Hemoglobin 29.2 Mean Corpuscular Hemoglobin Concent 33.0 Red Cell Distribution Width 13.9 Platelet Count 308 Mean Platelet Volume 9.9 Neutrophils % 56.6 Lymphocytes % 34.1 Monocytes % 6.8 Eosinophils % 1.8 Basophils % 0.4 Nucleated Red Blood Cells % 0.0 Neutrophils # 4.1 Lymphocytes # 2.5 Monocytes # 0.5 Eosinophils # 0.1 Basophils # 0.0 Nucleated Red Blood Cells # 0.0 Sodium Level 141 Potassium Level 4.5 Chloride Level 106 Carbon Dioxide Level 26 Anion Gap 14 Blood Urea Nitrogen 13 Creatinine 0.85 Glucose Level 105 Calcium Level 9.0 Medications Medications Current Medications Sodium Chloride (NS) 1,000 ml @ 80 mls/hr [id number] IV Last administered on 05:33; Admin Dose 80 MLS/HR; Start 10/07/17 at 00:00 Ondansetron HCl (Zofran Inj) 4 mg Q6H PRN IV NAUSEA AND/OR VOMITING Last administered on 10/07/17 01:18; Admin Dose 4 MG; Start 10/06/17 at 22:00 Acetaminophen (Tylenol Tab) 650 mg Q6H PRN PO PAIN LEVEL 1-3 OR FEVER; Start 10/06/17 at 22:00 Hydromorphone HCl (Dilaudid) 0.5 mg Q4H PRN IV SEVERE PAIN LEVEL 7-10 Last administered on 10/09/17 07:03; Admin Dose 0.5 MG; Start 10/06/17 at 22:00 Docusate Sodium (Colace) 100 mg Q12H PRN PO CONSTIPATION; Start 10/06/17 at 22 :00 Bisacodyl 5 mg 5 mg DAILY PRN PO CONSTIPATION; Start 10/06/17 at 22:00 Ceftriaxone Sodium (Rocephin) 50 ml @ 100 mls/hr Q24H IVPB Last administered on 10/08/17 16:05; Admin Dose 100 MLS/HR; Start 10/07/17 at 16:30 Hydrocortisone (Hydrocortisone 1% Cr) 1 applic BID TOP Last administered on 09:42; Admin Dose 1 APPLIC; Start 10/07/17 at 09:00 Acetaminophen/ Hydrocodone Bitart ([place] (5/325)) 1 tab Q4H PRN PO PAIN LEVEL 1 -5 Last administered on 10/09/17 09:47; Admin Dose 1 TAB; Start 10/07/17 at 12:00 Fluconazole (Diflucan) 100 mg DAILY PO Last administered on 10/09/17 09:42; Admin Dose 100 MG; Start 10/08/17 at 20:00 REGIDOR,SLADE Oct 09, 2017 10:56
[2017-10-09] MEDS: CEFTRIAXONE 1 GM/50 ML (PMX) 50 ML IVPB SCH (16:29)
--- NOTE | 2017-10-09 17:33 | HPN ---
Date/Time of Note Date/Time of Note DATE: 10/09/17 TIME: 17:33 Interval H&P Admission Note Pt. seen H&P reviewed: No system changes RODRÍGUEZ ERNANDEZ MD Oct 09, 2017 17:33
[2017-10-09] MEDS ORDERED: IOHEXOL 300MG/ML 30 ML BTL ONE (17:47)
[2017-10-09] MEDS ORDERED: PROPOFOL 20 ML ONE (17:55)
[2017-10-09] MEDS ORDERED: CEFAZOLIN 1 GM INJ ONE (17:55)
[2017-10-09] MEDS ORDERED: ONDANSETRON 4 MG INJ ONE (17:55)
[2017-10-09] MEDS ORDERED: ROCURONIUM 50 MG INJ ONE (17:55)
[2017-10-09] MEDS ORDERED: NEOSTIGMINE 3 MG/3 ML SYRINGE ONE (17:55)
[2017-10-09] MEDS ORDERED: FENTAnyl 50 MCG/ML VIAL ONE ×2 (17:55→18:18)
[2017-10-09] MEDS ORDERED: GLYCOPYRROLATE 0.4 MG INJ ONE (17:55)
[2017-10-09] MEDS ORDERED: MIDAZOLAM 1 MG/ML 2 ML INJ ONE (17:55)
[2017-10-09] MEDS ORDERED: DEXAMETHASONE 4 MG/ML 1 ML INJ ONE (17:56)
[2017-10-09] MEDS ORDERED: IPRATROPIUM (NEB) 0.5 MG/2.5 ML AMP HHN PRN (18:30)
[2017-10-09] MEDS ORDERED: LABETALOL HCL 20MG INJ IV PRN (18:30)
[2017-10-09] MEDS ORDERED: MEPERIDINE 25 MG INJ IV PRN (18:30)
[2017-10-09] MEDS ORDERED: TRIMETHOBENZAMIDE 100 MG/ML VIAL IM PRN (18:30)
[2017-10-09] MEDS ORDERED: ONDANSETRON 4 MG INJ IV PRN (18:30)
[2017-10-09] MEDS ORDERED: EPHEDrine SULFATE 50 MG/5 ML SYG IV PRN (18:30)
[2017-10-09] MEDS ORDERED: DIPHENHYDRAMINE 50 MG INJ IV PRN (18:30)
[2017-10-09] MEDS ORDERED: FENTAnyl 50 MCG/ML VIAL IV PRN ×3 (18:30)
[2017-10-09] MEDS ORDERED: ALBUTEROL 0.083% (NEB) 2.5 MG/3 ML AMP HHN PRN (18:30)
[2017-10-09] MEDS ORDERED: hydrALAzine 20 MG INJ IV PRN (18:30)
[2017-10-09] MEDS ORDERED: MIDAZOLAM 1 MG/ML 2 ML INJ IV PRN (18:30)
[2017-10-09] MEDS ORDERED: HYDROmorphONE (0.2 MG/ML) 10ML SYG IV PRN ×3 (18:30)
[2017-10-09] MEDS ORDERED: OXYCODONE/ACETAMINOPHEN (5/325) TAB PO PRN ×2 (18:30)
[2017-10-09] MEDS ORDERED: FUROSEMIDE 20 MG INJ ONE (19:12)
[2017-10-09] MEDS ORDERED: SUGAMMADEX SODIUM 200 MG/2 ML VIAL IV ONE (19:26)
--- NOTE | 2017-10-09 19:53 | OPR ---
Date/Time of Note Date/Time of Note DATE: 10/09/17 TIME: 19:45 Operative Report Procedure Date: Oct 09, 2017 Preoperative Diagnosis Left renal stone 16 x 18 mm Postoperative Diagnosis Left renal stone, size 16 x 18 mm Operation/Procedure Performed Cystoscopy and insertion of left ureteral JJ stent, 6 [place] by 24 cm long, left extracorporeal shockwave lithotripsy, removal of left nephrostomy tube Surgeon see signature line Manager [employer] None Anesthesia Type: general Anesthesiologist: Trevor Molina M.D. Estimated Blood Loss: minimal Transfusion none Specimen None Grafts/Implants none Tubes/Drains JJ stent 6 [place] by 24 cm Complications none Pt Condition Post Procedure: stable Disposition: PACU Indications Large left renal stone, patient has left nephrostomy tube Procedure Description The patient was brought to the operating room and placed in the supine position on the lithotripsy machine table. She was given general endotracheal anesthesia. Timeout was done, the patient was identified by her name birthdate and the procedure and the side of the procedure. Then the patient was positioned in the lithotomy position. The genital area was prepped and draped in the usual sterile manner. #21 [place] cystoscope sheath was introduced into the bladder. The left ureteral orifice was identified then cannulated with a 5 [place] open ended. A zip wire was passed under fluoroscopy all the way up to the kidney. The open-ended was removed and the 6 [place] by 24 cm long JJ stent was advanced on the zip wire all the way so it will curl in the kidney proximally and in the bladder distally. The cystoscope was then removed and a 16 [place] Carpio catheter was inserted into the bladder. The patient was then repositioned in the supine position and the stone was visualized on both screens of the lithotripsy machine and the extracorporeal shockwave were delivered to the stone starting at the lower end toward the ureter and then gradually go up as the stone was breaking. The position was rechecked periodically every 200-300 shockwaves. The stone appeared to be breaking well and the total shockwaves delivered where 2400 and the energy started with 3 Kv and went up to 7. At the end of the procedure the patient was given 10 mg of Lasix IV. Hematuria was noted in the nephrostomy tube at around 700 shockwaves. The stone appeared to be broken well. The patient was then turned toward her right side and the string of the nephrostomy tube was released and the nephrostomy tube was removed intact. A sterile dressing was applied over the nephrostomy area and covered with a piece of Tegaderm. The patient was transferred to the recovery room in a stable and satisfactory condition. RODRÍGUEZ ERNANDEZ MD Oct 09, 2017 19:53
[2017-10-09] MEDS ORDERED: HYDROmorphONE 0.5 MG/0.5 ML SYG IV ONE (22:00)
[2017-10-10] MEDS: HYDROmorphONE 0.5 MG/0.5 ML SYG IV PRN ×6 (01:37→22:02)
[2017-10-10 02:10] VITALS: BP 107/60; RESP 19
[2017-10-10] MEDS: HYDROCODONE/APAP (5/325) TAB PO PRN ×6 (02:32→23:57)
[2017-10-10 05:21] LABS: BASOPHILS % 0.3 % (0.0-2.0); EOSINOPHILS % 0.4 % (0.0-7.0); HEMATOCRIT 35.4 % (37.0-47.0); HEMOGLOBIN 11.7 g/dl (12.0-16.0); LYMPHOCYTES # 1.7 10^3/ul (0.8-2.9); LYMPHOCYTES % 16.7 % (15.0-51.0); MEAN CORPUSCULAR HEMOGLOBIN 29.2 pg (29.0-33.0); MEAN CORPUSCULAR HGB CONC 33.1 g/dl (32.0-37.0); MEAN CORPUSCULAR VOLUME 88.3 fl (82.0-101.0); MEAN PLATELET VOLUME 9.7 fl (7.4-10.4); MONOCYTE # 0.6 10^3/ul (0.3-0.9); MONOCYTES % 6.4 % (0.0-11.0); NEUTROPHIL # 7.6 10^3/ul (1.6-7.5); NEUTROPHILS % 75.8 % (39.0-77.0); PLATELET COUNT 324 10^3/UL (140-415); RED BLOOD COUNT 4.01 10^6/ul (4.20-5.40); RED CELL DISTRIBUTION WIDTH 13.9 % (11.5-14.5)
[2017-10-10] MEDS: SOD CHLORIDE 0.9% 1,000 ML IV SCH ×2 (05:36→16:02)
[2017-10-10 05:57] LABS: CALCIUM 8.9 mg/dl (8.4-10.2); CREATININE 0.76 mg/dl (0.44-1.00)
[2017-10-10 07:59] VITALS: BP 103/60; RESP 18
[2017-10-10] MEDS: HYDROCORTISONE 1% 28 GM CR TOP SCH ×2 (08:07→20:04)
[2017-10-10] MEDS: FLUCONAZOLE 100 MG TAB PO SCH (08:07)
--- NOTE | 2017-10-10 10:02 | RADRPT ---
PROCEDURE: XR Abdomen CLINICAL INDICATION: Left renal stone TECHNIQUE: An AP supine radiograph of the abdomen was submitted. COMPARISON: 10/07/2017 FINDINGS: The left nephrostomy catheter is been removed and a double-J left ureteral stent has been placed. Substantial stool is again seen to the colon without evidence of bowel obstruction. The liver again appears enlarged but no mass is identified. The 1.7 cm stone projecting through the left renal pelvis on the previous study is no longer identif ied. The osseous elements appear unremarkable. IMPRESSION: 1. The left nephrostomy catheter is been removed and a double-J left ureteral stent has been placed . 2. The large left renal calculus is no longer evident. 3. Excessive stool is seen to the colon. 4. Hepatomegaly. Physician Iban Date Time Electronically viewed and signed by Physician Iban on 10/10/2017 10:02 /
[2017-10-10 15:21] VITALS: BP 91/56; RESP 18
--- NOTE | 2017-10-10 15:29 | PN ---
Date/Time of Note Date/Time of Note DATE: 10/10/17 TIME: 15:26 Assessment/Plan VTE Prophylaxis VTE Prophylaxis Intervention: SCD's Lines/Catheters IV Catheter Type (from [facility]): Peripheral IV Urinary Cath still in place: Yes Assessment/Plan Chief Complaint/Hosp Course Assessment and plan 1. Urinary tract infection. Continue antibiotics. Afebrile at present. No leukocytosis noted. 2. Left-sided renal stone with associated UTI. Patient being followed by urology. s/p cystoscopy 3. Obesity. Weight reduction was advised. 4. Nicotine use. Cessation was advised. Disposition and plan: Continue with IV hydration and analgesics. cont abx. s/p cystoscopy. Still noted with some pain. Follow-up with urologist recommendations. DC when cleared by consultants. Discussed plan of care with Dr. King Problems: Subjective 24 Hr Interval Summary Free Text/Dictation no s/s of distress Exam/Review of Systems Vital Signs Vitals Vital Signs Date Time Temp Pulse Resp B/P Pulse Ox O2 Delivery O2 Flow Rate FiO2 10/10/17 15:21 98.6 63 18 91/56 98 10/09/17 21:50 Nasal Cannula 2.0 Intake and Output 10/09/17 10/09/17 10/10/17 14:59 22:59 06:59 Intake Total 750 ml 2950 ml 1470 ml Output Total 2800 ml 950 ml Balance 750 ml 150 ml 520 ml Exam Constitutional: alert, oriented, Psych: nl mood/affect Head: normocephalic Eyes: nl conjunctiva Neck: non-tender, supple Cardiovascular: other Gastrointestinal: soft (Regular rate) Musculoskeletal: nl extremities to inspection, nl gait and stance Extremities: normal pulses Neurological: [employer]ULT [employer] II-XII intact, nl mental status, nl speech Skin: nl turgor Results Result Diagram: 10/10/179 10/10/179 Results 24 hrs Laboratory Tests Test 10/10/17 04:39 White Blood Count 10.0 # Red Blood Count 4.01 L Hemoglobin 11.7 L Hematocrit 35.4 L Mean Corpuscular Volume 88.3 Mean Corpuscular Hemoglobin 29.2 Mean Corpuscular Hemoglobin Concent 33.1 Red Cell Distribution Width 13.9 Platelet Count 324 Mean Platelet Volume 9.7 Neutrophils % 75.8 Lymphocytes % 16.7 Monocytes % 6.4 Eosinophils % 0.4 Basophils % 0.3 Nucleated Red Blood Cells % 0.0 Neutrophils # 7.6 H Lymphocytes # 1.7 Monocytes # 0.6 Eosinophils # 0.0 Basophils # 0.0 Nucleated Red Blood Cells # 0.0 Sodium Level 142 Potassium Level 4.0 Chloride Level 103 Carbon Dioxide Level 28 Anion Gap 15 Blood Urea Nitrogen 10 Creatinine 0.76 Glucose Level 92 Calcium Level 8.9 Medications Medications Current Medications Sodium Chloride (NS) 1,000 ml @ 80 mls/hr [id number] IV Last administered on 05:36; Admin Dose 80 MLS/HR; Start 10/07/17 at 00:00 Ondansetron HCl (Zofran Inj) 4 mg Q6H PRN IV NAUSEA AND/OR VOMITING Last administered on 10/07/17 01:18; Admin Dose 4 MG; Start 10/06/17 at 22:00 Acetaminophen (Tylenol Tab) 650 mg Q6H PRN PO PAIN LEVEL 1-3 OR FEVER; Start 10/06/17 at 22:00 Hydromorphone HCl (Dilaudid) 0.5 mg Q4H PRN IV SEVERE PAIN LEVEL 7-10 Last administered on 10/10/17 13:52; Admin Dose 0.5 MG; Start 10/06/17 at 22:00 Docusate Sodium (Colace) 100 mg Q12H PRN PO CONSTIPATION; Start 10/06/17 at 22 :00 Bisacodyl 5 mg 5 mg DAILY PRN PO CONSTIPATION; Start 10/06/17 at 22:00 Ceftriaxone Sodium (Rocephin) 50 ml @ 100 mls/hr Q24H IVPB Last administered on 10/09/17 16:29; Admin Dose 100 MLS/HR; Start 10/07/17 at 16:30 Hydrocortisone (Hydrocortisone 1% Cr) 1 applic BID TOP Last administered on 08:07; Admin Dose 1 APPLIC; Start 10/07/17 at 09:00 Acetaminophen/ Hydrocodone Bitart ([place] (5/325)) 1 tab Q4H PRN PO PAIN LEVEL 1 -5 Last administered on 10/10/17 12:08; Admin Dose 1 TAB; Start 10/07/17 at 12:00 Fluconazole (Diflucan) 100 mg DAILY PO Last administered on 10/10/17 08:07; Admin Dose 100 MG; Start 10/08/17 at 20:00 SLADE KOVACS Oct 10, 2017 15:29
[2017-10-10] MEDS: CEFTRIAXONE 1 GM/50 ML (PMX) 50 ML IVPB SCH (16:02)
--- NOTE | 2017-10-10 20:24 | CONS ---
Date/Time of Note Date/Time of Note DATE: 10/10/17 TIME: 20:20 Consult Date/Type/Reason Admit Date/Time Oct 06, 2017 at 17:54 Initial Consult Date 10/07/17 Type of Consultation: Urology Reason for Consultation Left renal stone. Patient underwent left extracorporeal shockwave lithotripsy yesterday, cystoscopy and insertion of left ureteral JJ stent and removal of left nephrostomy tube Ordering Provider: ERICK WRIGHT MD Subjective Patient stated that she does have pain but there is no nausea or vomiting. She feels a pressure in the pelvic area Objective Vital Signs Date Time Temp Pulse Resp B/P Pulse Ox O2 Delivery O2 Flow Rate FiO2 10/10/17 15:21 98.6 63 18 91/56 98 10/09/17 21:50 Nasal Cannula 2.0 Intake and Output 10/09/17 10/09/17 10/10/17 15:00 23:00 07:00 Intake Total 750 ml 2950 ml 1470 ml Output Total 2800 ml 950 ml Balance 750 ml 150 ml 520 ml Exam Abdomen is soft the site of the nephrostomy tube is dry. The dressing is intact , the Carpio catheter that she has is draining clear urine Results/Medications Result Diagram: 10/10/17 0439 10/10/17 0439 Results 24 hrs Laboratory Tests Test 10/10/17 04:39 White Blood Count 10.0 # Red Blood Count 4.01 L Hemoglobin 11.7 L Hematocrit 35.4 L Mean Corpuscular Volume 88.3 Mean Corpuscular Hemoglobin 29.2 Mean Corpuscular Hemoglobin Concent 33.1 Red Cell Distribution Width 13.9 Platelet Count 324 Mean Platelet Volume 9.7 Neutrophils % 75.8 Lymphocytes % 16.7 Monocytes % 6.4 Eosinophils % 0.4 Basophils % 0.3 Nucleated Red Blood Cells % 0.0 Neutrophils # 7.6 H Lymphocytes # 1.7 Monocytes # 0.6 Eosinophils # 0.0 Basophils # 0.0 Nucleated Red Blood Cells # 0.0 Sodium Level 142 Potassium Level 4.0 Chloride Level 103 Carbon Dioxide Level 28 Anion Gap 15 Blood Urea Nitrogen 10 Creatinine 0.76 Glucose Level 92 Calcium Level 8.9 Medications Current Medications Sodium Chloride (NS) 1,000 ml @ 80 mls/hr [id number] IV Last administered on t 16:02; Admin Dose 80 MLS/HR; Start 10/07/17 at 00:00 Ondansetron HCl (Zofran Inj) 4 mg Q6H PRN IV NAUSEA AND/OR VOMITING Last administered on 10/07/17 01:18; Admin Dose 4 MG; Start 10/06/17 at 22:00 Acetaminophen (Tylenol Tab) 650 mg Q6H PRN PO PAIN LEVEL 1-3 OR FEVER; Start 10/06/17 at 22:00 Hydromorphone HCl (Dilaudid) 0.5 mg Q4H PRN IV SEVERE PAIN LEVEL 7-10 Last administered on 10/10/17 18:03; Admin Dose 0.5 MG; Start 10/06/17 at 22:00 Docusate Sodium (Colace) 100 mg Q12H PRN PO CONSTIPATION; Start 10/06/17 at 22 :00 Bisacodyl 5 mg 5 mg DAILY PRN PO CONSTIPATION; Start 10/06/17 at 22:00 Ceftriaxone Sodium (Rocephin) 50 ml @ 100 mls/hr Q24H IVPB Last administered on 10/10/17 16:02; Admin Dose 100 MLS/HR; Start 10/07/17 at 16:30 Hydrocortisone (Hydrocortisone 1% Cr) 1 applic BID TOP Last administered on 08:07; Admin Dose 1 APPLIC; Start 10/07/17 at 09:00 Acetaminophen/ Hydrocodone Bitart ([place] (5/325)) 1 tab Q4H PRN PO PAIN LEVEL 1 -5 Last administered on 10/10/17 20:03; Admin Dose 1 TAB; Start 10/07/17 at 12:00 Fluconazole (Diflucan) 100 mg DAILY PO Last administered on 10/10/17 08:07; Admin Dose 100 MG; Start 10/08/17 at 20:00 Assessment/Plan Chief Complaint/Hosp Course 26-year-old female had a 16 x 18 mm stone in the left kidney and left nephrostomy tube. She underwent left extracorporeal shockwave lithotripsy yesterday plus cystoscopy and insertion of left ureteral JJ stent and removal of the nephrostomy tube. Today she is feeling better the urine and the Carpio catheter is clear, she had a KUB and on that the stone is not seen any longer We will discontinue the Carpio catheter in a.m. and she may be discharged home and I instructed her she has to follow-up with my office later on so we could do a cystoscopy and remove the JJ stent. Problems: RODRÍGUEZ ERNANDEZ MD Oct 10, 2017 20:24
[2017-10-10 20:45] VITALS: BP 98/53; RESP 18
[2017-10-11] MEDS: HYDROmorphONE 0.5 MG/0.5 ML SYG IV PRN ×3 (02:06→11:39)
[2017-10-11 02:10] VITALS: BP 100/57; RESP 19
[2017-10-11] MEDS: SOD CHLORIDE 0.9% 1,000 ML IV SCH ×2 (04:00→07:49)
[2017-10-11] MEDS: HYDROCODONE/APAP (5/325) TAB PO PRN ×2 (05:12→09:17)
[2017-10-11 05:46] LABS: BASOPHILS % 0.4 % (0.0-2.0); EOSINOPHILS # 0.2 10^3/ul (0.0-0.5); EOSINOPHILS % 2.2 % (0.0-7.0); HEMATOCRIT 35.2 % (37.0-47.0); HEMOGLOBIN 11.8 g/dl (12.0-16.0); LYMPHOCYTES # 2.4 10^3/ul (0.8-2.9); LYMPHOCYTES % 24.7 % (15.0-51.0); MEAN CORPUSCULAR HEMOGLOBIN 29.6 pg (29.0-33.0); MEAN CORPUSCULAR HGB CONC 33.5 g/dl (32.0-37.0); MEAN CORPUSCULAR VOLUME 88.2 fl (82.0-101.0); MEAN PLATELET VOLUME 9.7 fl (7.4-10.4); MONOCYTE # 0.6 10^3/ul (0.3-0.9); MONOCYTES % 6.2 % (0.0-11.0); NEUTROPHIL # 6.4 10^3/ul (1.6-7.5); NEUTROPHILS % 66.3 % (39.0-77.0); PLATELET COUNT 336 10^3/UL (140-415); RED BLOOD COUNT 3.99 10^6/ul (4.20-5.40); RED CELL DISTRIBUTION WIDTH 13.6 % (11.5-14.5); WHITE BLOOD COUNT 9.7 10^3/ul (4.8-10.8)
[2017-10-11 06:12] LABS: CALCIUM 8.9 mg/dl (8.4-10.2); CREATININE 0.74 mg/dl (0.44-1.00); POTASSIUM 4.3 mmol/L (3.5-5.1)
[2017-10-11 07:47] VITALS: BP 99/55; RESP 18
[2017-10-11] MEDS: FLUCONAZOLE 100 MG TAB PO SCH (07:49)
[2017-10-11] MEDS: HYDROCORTISONE 1% 28 GM CR TOP SCH (07:52)
[2017-10-11 08:15] VITALS: BP 104/58; PULSE 60
[2017-10-11] MEDS ORDERED: DOXY100C PO (09:01)
[2017-10-11] MEDS ORDERED: RIFA300C53 PO (09:01)
[2017-10-11] MEDS ORDERED: SACC250C PO (09:01)
[2017-10-11] MEDS ORDERED: HYDR-3498 PO (09:01)
--- NOTE | 2017-10-11 09:14 | PDOCDIS ---
Discharge Instructions DIAGNOSIS Discharge Diagnosis 1. Urinary tract infection. 2. Left-sided renal stone with associated UTI. 3. Obesity. 4. Nicotine use. HOME CARE INSTRUCTIONS: Diet Instructions: Low Fat /CholesterolSpecial Diet: regular diet FOLLOW UP/APPOINTMENTS Follow-up Plan 1. Follow up with Dr. Jaret Davidson in one week SLADE KOVACS Oct 11, 2017 09:14
--- NOTE | 2017-10-16 17:12 | DS ---
Date/Time of Note Date/Time of Note DATE: 10/16/17 TIME: 17:12 Discharge Summary Admission/Discharge Info Admit Date/Time Oct 06, 2017 at 17:54 Discharge Date/Time Oct 11, 2017 at 12:43 Discharge Diagnosis 1. Urinary tract infection. 2. Left-sided renal stone with associated UTI. 3. Obesity. 4. Nicotine use. Patient Condition: Stable Hospital Course this is a 26-year-old female with history of 1.2 cm kidney stone who was brought to [facility] at the direction of her urologist due to worsening pain from her left nephrostomy tube. Patient had been diagnosed with a kidney stone for some time and during her admission already had her third nephrostomy tube in place. She was placed on antibiotics. Patient was also seen by neurologist inpatient. She was seen with a UTI and placed on appropriate antibiotics. She was seen by urologist and did undergo extracorporeal shockwave lithotripsy as well as cystoscopy and insertion of left ureteral JJ stent removal of left nephrostomy tube. She did tolerate procedure well. During the course of stay she did improve. She was otherwise optimized medically. She was advised weight reduction for her obesity and nicotine use cessation. She was advised to follow-up with urologist as outpatient for further monitoring and care of her JJ stent. The plan of care was discussed with the patient and patient did verbalize her understanding. On the day of discharge patient was in stable condition Discussed plan of care with Dr. Clif Esteban [employer] Hydrocodone Bit-Acetaminophen (Hydrocodone Bit-APAP) 5-325MG Tablet, 1 TAB PO Q4H Y for PAIN LEVEL 1-5, #30 TAB Prov:SLADE KOVACS 10/11/17 Saccharomyces Boulardii* (Florastor*) 250 Mg Cap, 500 MG PO BID, #20 CAP Prov:REGIDORSLADE 10/11/17 Doxycycline* (Vibramycin*) 100 Mg Capsule, 100 MG PO BID, #14 EA Prov:REGIDORSLADE 10/11/17 Rifampin* (Rifampin*) 300 Mg Cap, 300 MG PO BID, #14 CAP Prov:REGIDORSLADE 10/11/17 Follow-up Plan 1. Follow up with Dr. Jaret Davidson in one week Primary Care Provider Chanel Branham MD Time spent on discharge: > 30 minutes REGIDOR,SLADE Oct 16, 2017 17:12
== END 2017-10-11 12:43 | disposition home or self-care (01) | DRG 669 ==
LOC: E/R 13:44 → PP2 17:54
PROVIDERS: ADMIT Internal Medicine; ATTEND Internal Medicine
PROC: 0T778DZ Dilation of Left Ureter with Intraluminal Device, Via Natural or Artificial Opening Endoscopic (ICD-10-PCS; 2017-10-09)
PROC: 0TP5X0Z Removal of Drainage Device from Kidney, External Approach (ICD-10-PCS; 2017-10-09)
PROC: 0TC78ZZ Extirpation of Matter from Left Ureter, Via Natural or Artificial Opening Endoscopic (ICD-10-PCS; principal; 2017-10-09 17:30)
DX: N39.0 Urinary tract infection, site not specified (principal); T83.84XA Pain due to genitourinary prosthetic devices, implants and grafts, initial encounter; N20.0 Calculus of kidney; E66.9 Obesity, unspecified; Y92.89 Other specified places as the place of occurrence of the external cause; Y83.3 Surgical operation with formation of external stoma as the cause of abnormal reaction of the patient, or of later complication, without mention of misadventure at the time of the procedure; F17.200 Nicotine dependence, unspecified, uncomplicated; Z68.30 Body mass index [BMI] 30.0-30.9, adult
CPT/HCPCS: 36415; 71020; 74000; 76775; 80048; 80053; 80061; 81001; 83036; 83605; 83690; 83735; 84100; 84443; 84703; 85025; 85610; 85730; 87040; 87086; 96365; 96375; J1940; C2617; J0690; J0696; J1100; J1170; J2250; J2405; J2710; J3010; J3370; J7030; Q9967